=== PATIENT | male | born 2000 | race Hispanic/Latino ===

== ENCOUNTER 2024-11-20 20:11 | Emergency (ER) | payer OTHER ==
[~2024-11-20] VITALS: Ht 175.3 cm; Wt 80.7 kg
[2024-11-20 22:12] LABS: BLOOD/HGB, URINE NEGATIVE (Negative); KETONE, URINE NEGATIVE (Negative); LEUK ESTERASE, URINE NEGATIVE (negative); NITRITE, URINE NEGATIVE (negative)
[2024-11-20 22:18] LABS: BACTERIA, URINE RARE /hpf (negative); CASTS, URINE NONE SEEN \\lpf; CRYSTALS, URINE NONE SEEN (0-1+); EPITHELIAL CELLS, URINE SQUAMOUS 1+ /lpf (0-1+); REFLEX CULTURE, URINE No (No)
[2024-11-20 22:32] VITALS: BP 152/100
== END 2024-11-20 22:32 | disposition home or self-care (01) ==
LOC: ED 20:11
PROVIDERS: Emergency Medicine
DX: R10.31 Right lower quadrant pain (principal)
CPT/HCPCS: 81001; 99283